=== PATIENT | male | born 1945 | race Caucasian/White ===

== ENCOUNTER 2022-08-09 14:53 | Observation (INO) | payer BC, SELFPAY ==
[2022-08-09] VITALS (30 sets, daily range): BP systolic 127–163; BP diastolic 62–78; PULSE 59–78; RESP 11–22; TEMP 36.8–36.9; O2SAT 92–100
--- NOTE | 2022-08-09 15:00 | RT.EKG_ITS ---
APPROVED REPORT Exam: Resting ECG Reason for Exam: syncopal episode Patient Location: E HR:71 bpm ECG Measurements Heart Rate 71 AXIS UT 170 P -2 QRSd 90 QRS 55 QT 397 T 53 QTc 431 Conclusion Sinus rhythm...normal P axis, V-rate 60- 99
[2022-08-09 15:29] LABS: Abs Immature Grans 0.02 10^3/uL (0.0-0.06); Absolute Basophil Count 0.07 10^3/uL (0.0-0.2); Absolute Eosinophil Count 0.32 10^3/uL (0.0-0.7); Absolute Monocyte Count 0.81 10^3/uL (0.1-0.8); Absolute Neutrophil Count 6.27 10^3/uL (1.2-6.7); Basophils % 0.8; Eosinophils % 3.6; HCT 44.3 % (40.0-50.0); HGB 14.7 g/dL (13.5-17.5); Immature Grans % 0.2; Lymphocytes % 14.8; MCH 31.2 pg (27.0-33.0); MCHC 33.2 % (32.0-36.0); MCV 94 fL (80-95); MPV 10.1 fL (8.0-11.0); Monocytes % 9.2; Neutrophils % 71.4; Platelet Count 176 10^3/uL (130-400); RBC 4.71 10^6/uL (4.36-5.78); RDW 12.6 % (11.8-14.1); RDW-SD 43.3 fL; WBC 8.79 10^3/uL (4.4-10.8)
--- NOTE | 2022-08-09 15:30 | DI.CT_ITS ---
Exam(s) CT HEAD WO EXAM: CT HEAD WO CLINICAL HISTORY: Fall, syncope, R face injury. TECHNIQUE: Imaging Protocol: Axial computed tomography images with coronal and sagittal reformatted images were created and reviewed COMPARISON: No exams were available for comparison FINDINGS: Ventricles and Extra axial spaces: Normal in size and morphology for the patient's age. Hemorrhage: None. Cerebral parenchyma: Normal. Midline shift: None. Brainstem/Cerebellum: Normal. Calvarium: Normal. Visualized Paranasal sinuses/Mastoids: Clear. Soft Tissues: Unremarkable. IMPRESSION: No acute intracranial process. Findings called to Dr. Sloan, emergency department provider. RADIATION DOSE DELIVERED: 815.72mGy.cm Total DLP DATA REPOSITORY: All CT scans at this facility are submitted to the National Radiology Data Registry (NRDR) Dose Index Registry (DIR) with the [employer] (ACR). RADIATION OPTIMIZATION: All CT scans at this facility use at least one of these dose optimization te chniques: automated exposure control; mA and/or kV adjustment per patient size (includes targeted exa ms where dose is matched to clinical indication); or iterative reconstruction.
--- NOTE | 2022-08-09 15:36 | W.ED.GENAD ---
Discharge Plan Disposition Patient Disposition: Home Condition: Improving Discharge Details Chief Complaint: [id number] Clinical Impression: Syncope Primary Care Provider: Bridget,Local ED Provider: Francisco Sloan Home Meds and New Rx's Prescriptions: No Action atorvastatin 40 mg Tablet 40 mg PO DAILY sildenafil 25 mg Tablet 20 mg PO PRN PRN aspirin 81 mg Tablet 81 mg PO DAILY metoprolol succinate 25 mg Tablet Extended Release 24 Hr 25 mg PO DAILY albuterol 90 mcg/actuation Aerosol 1 mcg INHALATION PRN PRN epinephrine 0.3 mg/0.3 mL Auto-Injector 0.3 ml IM PRN PRN fluticasone propion-salmeterol [Advair Diskus] 100-50 mcg/dose Blister With Device 1 inh INHALATION DAILY multivitamin Capsule 1 cap PO DAILY omeprazole 20 mg Tablet,Disintegrat, Delay Rel See Rx Instructions .ROUTE .COMPLEX Rx Instructions: 20 mg orally every other day Medical Decision Making 77-year-old male presents with his . He lives in [facility] and is here caring for a family member. They drove through a snowstorm for 7 hours prior to arriving this weekend. Last night while making dinner the patient placed something on the counter, abruptly fell to the ground and was noted to have a question of syncope for a few seconds. There was no tongue biting, no shaking, no incontinence. He denies chest pain or palpitations. Has slight headache today. Discussed with his home doctor who referred him to the emergency department. Patient states he has no complaints today. Broad differential diagnosis considered including cardiogenic syncope, vagal mediated syncope, given the recent long distance drive must exclude PE. The patient had IV access established, screening labs, EKG obtained and he is referred for CT imaging of the head, chest x-ray, laboratories. The patient has a white blood cell count of 8, hematocrit 44, platelets 176. D-dimer is negative adjusted for age at 560. Sodium 136, potassium 3.9, chloride 102, bicarb 28, BUN 17, creatinine 1.0. Troponin is negative. CT scan of the head without acute intracranial findings. Please see the formal report. Chest x-ray unremarkable. Patient's work-up today is reassuring. He does have history of ischemic coronary artery disease, age 77 and unprovoked syncope. I feel he is best served by a period of observation and will discuss admission with the hospitalist team. HPI General Mode of arrival: ambulatory. Date/Time Provider Initiated Documentation: 08/09/22 15:08. Limitations to Documentation: no limitations. Information obtained by: patient and family. History of Present Illness 77 year old M presents to the emergency department with the chief complaint of Syncope last night while standing, described as moderate, and is localized to the head. Patient started experiencing this minute(s) and it has been now resolved. No relieving factors improve symptom(s), No exacerbating factors reported . Patient notes syncope; denies chest pain, diaphoresis, fever/chills, nausea/vomiting and weakness. Patient did receive the following treatments prior to arrival, none Related Data Home Medications Medication Instructions Recorded Confirmed albuterol 90 mcg/actuation aerosol 1 mcg inhalation PRN PRN 08/09/22 08/09/22 inhaler aspirin 81 mg tablet 81 mg PO DAILY 08/09/22 08/09/22 atorvastatin 40 mg tablet 40 mg PO DAILY 08/09/22 08/09/22 epinephrine 0.3 mg/0.3 mL 0.3 ml IM PRN PRN 08/09/22 08/09/22 injection, auto-injector fluticasone 100 mcg-salmeterol 50 1 inh inhalation DAILY 08/09/22 08/09/22 mcg/dose blistr powdr for inhalation (Advair Diskus) metoprolol succinate 25 mg 25 mg PO DAILY 08/09/22 08/09/22 tablet,extended release 24 hr multivitamin 1 cap PO DAILY 08/09/22 08/09/22 omeprazole 20 mg delayed See Rx Instructions .Route .COMPLEX 08/09/22 08/09/22 release,disintegrating tablet sildenafil 25 mg tablet 20 mg PO PRN PRN 08/09/22 08/09/22 Allergies Allergy/AdvReac Type Severity Reaction Status Date / Time bee venom protein (honey bee) Allergy Severe Unverified 08/09/22 15:09 animal dander Allergy Mild Unverified 08/09/22 15:09 General Stated Complaint: [id number] SONY: 3 Review of Systems Narrative: Tetanus last updated 2010. 7 systems reviewed and otherwise negative. PFSH All Active Problems (Updated 08/09/22 @ 17:27 by Francisco Sloan MD) Syncope (Chronic) Social History Smoking/Tobacco Use Status: Former Tobacco Use Smoking risk assessment performed?: Yes Alcohol Intake: current Alcohol Intake frequency: 0-2 drinks per day Alcohol type: wine Drug use: Never Substance use type: does not use Do you feel safe at home: Yes Do you feel safe in your relationship?: Yes Exam Narrative Exam Narrative: GEN: awake, alert, oriented 3. Pleasant, well groomed, interactive. HEAD: Normocephalic, right face ecchymosis around the orbit. There is no bony instability or facial anesthesia. The right lateral superior orbit has a subtle abrasion present. ENT: Mucous membranes moist, oropharynx unremarkable, External ear exam unremarkable EYES: PERRL, EOMI NECK: Full ROM, no CORNELIO, no menigismus CHEST/RESP: Nontender, clear to auscultation bilateral, no wheeze/rhonchi/rales CARDIOVASCULAR: RRR, no murmur, rub alysha. 2+ Rad pulse bilateral ABDOMEN: Soft, nontender, no mass. +Bowel sounds EXT: Full ROM, no edema, no rash Neuro: Grossly normal neurologic exam, conversant, interactive. Psych: Speech fluent, thoughts congruent, affect normal Course Vital Signs Vital signs: Vital Signs Temperature 36.9 C 08/09/22 15:03 Pulse 76 08/09/22 15:03 Respiratory Rate 15 08/09/22 15:03 Pulse Oximetry 99 08/09/22 15:03 Temperature 36.9 C 08/09/22 15:03 Temperature Source Oral 08/09/22 15:03 Pulse 76 08/09/22 15:15 Pulse 72 08/09/22 15:20 Respiratory Rate 15 08/09/22 15:20 Blood Pressure 163/74 H 08/09/22 15:15 Blood Pressure Mean 97 08/09/22 15:15 Pulse Oximetry 100 08/09/22 15:20 Oxygen Delivery Method Room Air 08/09/22 15:03 Oxygen Flow Rate 0 08/09/22 15:03 Pain Level 0 08/09/22 15:03 Lab/Test Results Lab/Test Results: Laboratory Tests Range/Units 08/09/22 15:20 WBC (4.4-10.8) 10^3/uL 8.79 RBC (4.36-5.78) 10^6/uL 4.71 Hgb (13.5-17.5) g/dL 14.7 Hct (40.0-50.0) % 44.3 MCV (80-95) fL 94 MCH (27.0-33.0) pg 31.2 MCHC (32.0-36.0) % 33.2 RDW (11.8-14.1) % 12.6 Plt Count (130-400) 10^3/uL 176 MPV (8.0-11.0) fL 10.1 Immature Gran % 0.2 Neutrophils % 71.4 Lymphocytes % 14.8 Monocytes % 9.2 Eosinophils % 3.6 Basophils % 0.8 Nucleated RBC % (0.0-0.3) % 0.0 Absolute Neutrophils (1.2-6.7) 10^3/uL 6.27 Absolute Lymphocytes (1.2-3.4) 10^3/uL 1.30 Absolute Monocytes (0.1-0.8) 10^3/uL 0.81 H Absolute Eosinophils (0.0-0.7) 10^3/uL 0.32 Absolute Basophils (0.0-0.2) 10^3/uL 0.07
[2022-08-09 15:46] LABS: ALT 31 U/L (16-63); AST 23 U/L (15-37); Albumin 3.8 g/dL (3.4-5.0); Alkaline Phosphatase 98 U/L (46-116); Anion Gap 5.8 mmol/L (3-11); BUN 17 mg/dL (7-18); Bilirubin, Total 0.7 mg/dL (0.2-1.0); CO2 28.2 mmol/L (21.0-32.0); Calcium 8.9 mg/dL (8.5-10.1); Chloride 102 mmol/L (98-107); Estimated GFR 76.56 (mL/min/1.73m2); Glucose 95 mg/dL (74-106); Potassium 3.9 mmol/L (3.5-5.1); Sodium 136 mmol/L (136-145); Troponin I < 50 ng/L (<or=60)
--- NOTE | 2022-08-09 16:15 | DI.RAD_ITS ---
Exam(s) XR CHEST 2V PA LATERAL EXAM: XR CHEST 2V PA LATERAL CLINICAL HISTORY: SYncope TECHNIQUE: 2D digital imaging was performed. COMPARISON: No exams were available for comparison FINDINGS: HEART: Normal size. Status post CABG. Aorta: Not dilated. PULMONARY VASCULATURE: Normal. LUNGS: Clear. PLEURAL SPACE: No pleural effusion or pneumothorax. BONE:Unremarkable for age. Sternal wires. IMPRESSION: No acute abnormality. DATA REPOSITORY: RADIATION DOSE DELIVERED:
[2022-08-09 16:28] LABS: D-Dimer 560 ng/mlFEU (<500)
[2022-08-09 18:04] LABS: Source Nasal/Nares
[2022-08-09 18:16] LABS: Bilirubin Negative (Negative); Blood Negative (Negative); Clarity Clear (Clear); Glucose Negative (Negative); Ketones Negative (Negative); Leukocyte Esterase Negative (Negative); Nitrite Negative (Negative); Urobilinogen 0.2 mg/dL (Up to 0.2)
--- NOTE | 2022-08-09 18:21 | W.PM.HP.N ---
Date of service: 08/09/22 Time of Service: 18:21 Assessment and Plan Assessment and plan (1) Syncope: Status: Acute Assessment and plan: No evidence of ACS. I do agree that this sounds like it could have been a cardiogenic event. I am also curious if he does not have transient SVT in response to advair. Monitor on tele. Obtain echo in am. Not orthostatic. (2) CAD (coronary artery disease): Status: Chronic Assessment and plan: Continue home medications (3) HTN (hypertension), benign: Status: Chronic Assessment and plan: Continue home metoprolol (4) Hyperlipidemia: Status: Chronic Assessment and plan: Continue atorvastatin. Check fasting lipid panel. (5) Closed head injury: Status: Acute Assessment and plan: Avoid chemical DVT ppx. Monitor for change in neurologic status. (6) DVT prophylaxis: Status: Acute Assessment and plan: SDCs Avoid chemical DVT ppx in setting of head trauma (7) Discharge planning issues: Status: Acute Assessment and plan: full code. Place in observation status. Anticipate discharge tomorrow with a cardiac event recorder (if that's a possibility given that he will be traveling back to [place], [place], next week). History of Present Illness History of Present Illness Chief Complaint: Syncope Narrative: Mr Mejía is a 77 year old male with PMHx of two prior syncopal episodes, CAD s/p CABG/stent, as well as h/o HTH, hyperlipidemia, non-oxygen dependent COPD, GERD, who presented to [facility] ED today at the recommendation of his PCP in [place], [place] (where he resides) after having a syncopal event at home while working on preparing dinner and placing a dish of lasagna on the counter. He did not have any prodromal symptoms (which is different from his prior syncopal episodes when he would wake up in the middle of the night nauseated and faint when he would get up from the bed). He thinks he was unconscious for about a minute and was not accompanied by convulsive activity. He fell forward and onto his right side. He did hit his head and has an ecchymosis over his right eye. When he came to it, the only abnormal thing he felt was very mild nausea. He did enjoy his usual cocktail yesterday evening prior to the event. He does note that sometimes taking advair makes him feel flushed. The patient has had quite a bit of stress in the preceding days, including shoveling snow two days aog, driving 7 hours through the snow storm, and taking care of his [id number]. He admits he did not do much hydration during this time, but he has been eating. He specifically denies dizziness, headache, palpitations, chest pain, shortness of breath, nausea now. He is not orthostatic in the ER, and his workup so far, including EKG, troponin, CT head has been negative. Observation on the hospitalist service has been requested. His PCP is Dr Justino Tolliver in [place], [place]. Review of Systems All systems reviewed & are unremarkable except as noted in HPI and below PFSH All Active Problems (Updated 08/09/22 @ 19:42 by Latoya Cleveland MD) COPD (chronic obstructive pulmonary disease) (Chronic) Discharge planning issues (Acute) DVT prophylaxis (Acute) Closed head injury (Acute) GERD (gastroesophageal reflux disease) (Chronic) Hyperlipidemia (Chronic) HTN (hypertension), benign (Chronic) CAD (coronary artery disease) (Chronic) Syncope (Acute) Medical History (Updated 08/09/22 @ 19:42 by Laotya Cleveland MD) Syncopal episodes Surgical History (Updated 08/09/22 @ 19:48 by Latoya Cleveland MD) H/O parathyroidectomy History of coronary artery stent placement Hx of CABG Family History (Updated 08/09/22 @ 19:41 by Latoya Cleveland MD) Father Heart disease Hypertension Mother Stroke Social History Smoking/Tobacco Use Status: Former Tobacco Use Smoking risk assessment performed?: Yes Alcohol Intake: current Alcohol Intake frequency: 0-2 drinks per day Alcohol type: wine Drug use: Never Substance use type: does not use Do you feel safe at home: Yes Do you feel safe in your relationship?: Yes Meds Allergies and Home Medications Allergies Allergy/AdvReac Type Severity Reaction Status Date / Time bee venom protein (honey bee) Allergy Severe Unverified 08/09/22 15:09 animal dander Allergy Mild Unverified 08/09/22 15:09 Home Medications Medication Instructions Recorded Confirmed Type albuterol 90 mcg/actuation aerosol 1 mcg inhalation PRN PRN 08/09/22 08/09/22 History inhaler aspirin 81 mg tablet 81 mg PO DAILY 08/09/22 08/09/22 History atorvastatin 40 mg tablet 40 mg PO DAILY 08/09/22 08/09/22 History epinephrine 0.3 mg/0.3 mL 0.3 ml IM PRN PRN 08/09/22 08/09/22 History injection, auto-injector fluticasone 100 mcg-salmeterol 50 1 inh inhalation DAILY 08/09/22 08/09/22 History mcg/dose blistr powdr for inhalation (Advair Diskus) metoprolol succinate 25 mg 25 mg PO DAILY 08/09/22 08/09/22 History tablet,extended release 24 hr multivitamin 1 cap PO DAILY 08/09/22 08/09/22 History omeprazole 20 mg delayed See Rx Instructions .Route .COMPLEX 08/09/22 08/09/22 History release,disintegrating tablet sildenafil 25 mg tablet 20 mg PO PRN PRN 08/09/22 08/09/22 History Exam Narrative Exam Narrative: General: Very pleasant male who looks younger than his stated age, A&Ox3, sitting up comfortably in bed Neurological: A&Ox3, no focal deficits Psychiatric: Appropriate speech pattern/content Skin: Ecchymosis over R eye, otherwise no visible bruises/rashes HEENT: Ecchymosis R eye, normocephalic, EOMI, MMM, clear oropharynx, no submandibular or cervical lymphadenopathy, no goiter or JVD Cardiovascular: RRR, a very quiet MEMO Lungs: CTAB Gastrointestinal: soft, nontender, nondistended Genitourinary: deferred Extremities: No edema BLEs, trace pedal pulses B, no c/c. Results Imaging Additional studies: CT head: No acute intracranial process. CXR: No acute abnormality.? EKG: NSR, HR 71, no acute ischemia Labs 08/09/22 15:20 08/09/22 15:20 Labs: Laboratory Results - last 24 hr 08/09/22 08/09/22 08/09/22 15:20 15:20 15:20 WBC 8.79 RBC 4.71 Hgb 14.7 Hct 44.3 MCV 94 MCH 31.2 MCHC 33.2 RDW 12.6 Plt Count 176 MPV 10.1 Immature Gran % 0.2 Neutrophils % 71.4 Lymphocytes % 14.8 Monocytes % 9.2 Eosinophils % 3.6 Basophils % 0.8 Nucleated RBC % 0.0 Absolute Neutrophils 6.27 Absolute Lymphocytes 1.30 Absolute Monocytes 0.81 H Absolute Eosinophils 0.32 Absolute Basophils 0.07 D-Dimer 560 H Sodium 136 Potassium 3.9 Chloride 102 Carbon Dioxide 28.2 Anion Gap 5.8 BUN 17 Creatinine 1.0 Est GFR (CKD-EPI 2020) 76.56 Glucose 95 Calcium 8.9 Magnesium 2.0 Total Bilirubin 0.7 AST 23 ALT 31 Alkaline Phosphatase 98 Troponin I < 50 Total Protein 7.0 Albumin 3.8 Urine Color Urine Clarity Urine pH Ur Specific [place] Urine Protein Urine Ketones Urine Blood Urine Nitrite Urine Bilirubin Urine Urobilinogen Ur Leukocyte Esterase Urine Glucose COVID-19 Source 08/09/22 08/09/22 17:46 17:46 WBC RBC Hgb Hct MCV MCH MCHC RDW Plt Count MPV Immature Gran % Neutrophils % Lymphocytes % Monocytes % Eosinophils % Basophils % Nucleated RBC % Absolute Neutrophils Absolute Lymphocytes Absolute Monocytes Absolute Eosinophils Absolute Basophils D-Dimer Sodium Potassium Chloride Carbon Dioxide Anion Gap BUN Creatinine Est GFR (CKD-EPI 2020) Glucose Calcium Magnesium Total Bilirubin AST ALT Alkaline Phosphatase Troponin I Total Protein Albumin Urine Color Yellow Urine Clarity Clear Urine pH 7.0 Ur Specific [place] 1.010 Urine Protein Negative Urine Ketones Negative Urine Blood Negative Urine Nitrite Negative Urine Bilirubin Negative Urine Urobilinogen 0.2 Ur Leukocyte Esterase Negative Urine Glucose Negative COVID-19 Source Nasal/Nares Last Vital Signs Temp 36.9 C 08/09/22 15:03 Pulse 67 08/09/22 17:45 Resp 13 08/09/22 18:01 BP 131/67 08/09/22 17:45 Pulse Ox 94 08/09/22 18:01 PAWSS Have you Been Recently Intoxicated or Drunk Within the Last 30 days?: No Have you Ever Experienced Previous Episodes of Alcohol Withdrawal?: No Have you ever Experienced Withdrawal Seizures?: No Have you ever Experienced Delirium Tremens(DT)s?: No Have you ever undergone Alcohol Rehabilitation Treatment (i.e, inpt ot outpatient treatment programs)?: No Have you ever Experienced Blackouts?: No Have you ever Combined Alcohol with other Downers within the last 90 days?: No Have you ever Combined Alcohol with any other Substance of Abuse during the last 90 days?: No Positive Blood Alcohol level on Presentation? [PCS.BAL]: No Evidence of Increased Autonomic Activity (i.e. HR>120, tremor, sweating, agitation, nausea)?: No Result: 0 Time Spent Time spent with Patient: 55-74 minutes Time was spent: preparing to see the patient(eg.review tests), obtaining and/or reviewing separately otained hiistory, ordering medications,tests, procedures, referring, communicating with other health palliative care coordinator, indepentently interpreting results, counseling the patient and care coordination
[2022-08-09 18:34] LABS: COVID-19 PCR Negative (Negative)
--- NOTE | 2022-08-09 18:55 | NUR.NOTE ---
Nursing Note: settled pt in to his new room. food warmed up, water provided. phone chargers provided. pt is aox4. no acute distress noted. call johnson within reach. bed in lowest position
[2022-08-09 19:08] LABS: Troponin I < 50 ng/L (<or=60)
[2022-08-10] VITALS (7 sets, daily range): BP systolic 108–135; BP diastolic 50–86; PULSE 63–75; RESP 16–18; TEMP 36.4–37.1; O2SAT 95–100
[2022-08-10 07:40] LABS: Anion Gap 6.3 mmol/L (3-11); BUN 14 mg/dL (7-18); CO2 27.7 mmol/L (21.0-32.0); CREATININE 0.8 mg/dL (0.70-1.30); Calcium 8.8 mg/dL (8.5-10.1); Calculated LDL 56 mg/dL (<100); Chloride 107 mmol/L (98-107); Cholesterol 128 mg/dL (<200); Estimated GFR 90.02 (mL/min/1.73m2); Glucose 96 mg/dL (74-106); HDL Cholesterol 57 mg/dL (40-60); Magnesium 1.9 mg/dL (1.8-2.4); Potassium 4.1 mmol/L (3.5-5.1); Sodium 141 mmol/L (136-145); TSH (W/Ref FT4) 3.25 uIU/mL (0.36-3.74); Triglyceride 77 mg/dL (<150)
--- NOTE | 2022-08-10 07:45 | RT.EKG_ITS ---
APPROVED REPORT Exam: Resting ECG Reason for Exam: F/u syncope, long pause overnight Patient Location: I HR:65 bpm ECG Measurements Heart Rate 65 AXIS UT 167 P -14 QRSd 96 QRS 49 QT 435 T 47 QTc 453 Conclusion Sinus rhythm...normal P axis, V-rate 50- 99 Normal Electrocardiogram
[2022-08-10] MEDS: Omeprazole 20 MG CAPCR PO (08:04)
[2022-08-10] MEDS: Aspirin 81 MG CHEW PO (08:04)
[2022-08-10] MEDS: Multivitamin w/Minerals TAB 1 TAB PO (08:04)
[2022-08-10 08:06] LABS: Lab Add On Test DONE
--- NOTE | 2022-08-10 11:05 | INITIAL_ITS ---
- If Service Date Differs Date of service: 08/10/22 Time of Service: 11:05 Care Management Initial Assess REASON FOR HOSPITALIZATION:: Syncope PAST MEDICAL HISTORY/PAST SURGICAL HISTORY:: All Active Problems. COPD (chronic obstructive pulmonary disease) (Chronic). Discharge planning issues (Acute). DVT prophylaxis (Acute). Closed head injury (Acute). GERD (gastroesophageal reflux disease) (Chronic). Hyperlipidemia (Chronic). HTN (hypertension), be nign (Chronic). CAD (coronary artery disease) (Chronic). Syncope (Acute). Medical History. Syncopal episodes. Surgical History. H/O parathyroidectomy. History of coronary artery stent placement. Hx of CABG PREVIOUS FUNCTIONAL STATUS/SOCIAL/FAMILY SUPPORTS:: Abdirahman lives in [place], [place] with his , Kat. He is independent at baseline. CURRENT FUNCTIONAL STATUS:: Phil was sitting up in his chair when CM met with him. He stated that he has had several tests since arriving, and is expecting to have an echo later today. He stated that he is feeling better than yesterday. He reported that he is in [place] helping care for his 's parents, and he is normally very active, so sitting in a hospital room is difficult for him. CM posadas ggested that he walk around the halls to fit in some activity. Per report, he may require a heart monitor upon discharge. RT will communicate with his PCP, which is not local. CM will continue to follow. ADVANCE DIRECTIVES:: Not on file. Has patient been provided with info about the portal/API?: Yes Did the patient sign up for the portal?: No CODE STATUS:: Full Code INSURANCE COVERAGE / FINANCIAL ISSUES:: AYALA Cedeno MCR replacement, MCR CURRENT HOME/COMMUNITY SERVICES/EQUIPMENT:: None. PRIMARY CARE PHYSICIAN:: Not local. POTENTIAL DISCHARGE NEEDS:: Evaluations for further needs, possible heart monitor, follow up appointments. PATIENT/FAMILY EDUCATION NEEDS:: Review discharge instructions and limitations, discussion of self care needs including ask me three. ANTICIPATED BARRIERS TO DISCHARGE:: None identified. TRANSPORTATION:: Via private vehicle by family. PLAN:: Anticipate Phil will return home when medically cleared. His will drive him home via private vehicle. He will follow up with his PCP and discharge plan of care. CM will continue to follow.
--- NOTE | 2022-08-10 15:25 | PGE_ITS ---
Date of Service Date of service: 08/10/22 Time of Service: 09:30 Assessment and Plan Assessment and plan (1) Sinus pause: Status: Acute Assessment and plan: In setting of syncope and beta blockade. The patient does also describe a tick bite 2 years ago that did not get treated. There was no rash and it does not sound like the tick had been attached for a long time. D/c metoprolol. Check tick panel. Continue to monitor for recurrences of pauses. If they do not recur, would discharge home in 48 hrs with a cardiac event recorder. If they do recur, would need transfer to a tertiary care facility for a pacemaker. I spoke with the patient's potato chip packaging machine operator (Dr Baker) who is now aware of the situation and agrees with the plan. We are notifying the PCP's office as well. (2) Syncope: Status: Acute Assessment and plan: In setting of above, I suspect that syncope is cardiogenic. May require pacemaker placement if pauses recur. Echo is not available today. (3) CAD (coronary artery disease): Status: Chronic Assessment and plan: Discontinue metoprolol. (4) HTN (hypertension), benign: Status: Chronic Assessment and plan: Discontinue metoprolol (5) Hyperlipidemia: Status: Chronic Assessment and plan: Continue atorvastatin. Lipids at goal. (6) Closed head injury: Status: Acute Assessment and plan: Avoid chemical DVT ppx. Monitor for change in neurologic status. (7) DVT prophylaxis: Status: Acute Assessment and plan: SDCs Avoid chemical DVT ppx in setting of head trauma (8) Discharge planning issues: Status: Acute Assessment and plan: full code. Admit to inpatient status. PCP: Justino Tolliver in [place], [place]. Dry Kiln Worker: Dr Baker in [place], [place]. May require pacemaker placement on this admission. Subjective Subjective Interval history since last seen: Mr Mejía had a 4.73 sec pause yesterday evening while eating pudding. He was symptomatic. This morning he is feeling fine. He denies dizziness, chest pain, shortness of breath, nausea. Exam Narrative Exam Narrative: General: Very pleasant male who looks younger than his stated age, A&Ox3, sitting in a chair HEENT: Ecchymosis R eye, EOMI, MMM Cardiovascular: RRR, a very quiet MEMO Lungs: CTAB Gastrointestinal: soft, nontender, nondistended Extremities: No edema BLEs, trace pedal pulses B, no c/c. Objective Last Vital Signs Temp 36.4 C L 08/10/22 12:17 Pulse 66 08/10/22 12:17 Resp 16 08/10/22 12:17 BP 133/86 08/10/22 12:17 Pulse Ox 99 08/10/22 12:17 Laboratory Results - last 24 hr 08/09/22 08/09/22 08/09/22 15:20 15:20 15:20 WBC 8.79 RBC 4.71 Hgb 14.7 Hct 44.3 MCV 94 MCH 31.2 MCHC 33.2 RDW 12.6 Plt Count 176 MPV 10.1 Immature Gran % 0.2 Neutrophils % 71.4 Lymphocytes % 14.8 Monocytes % 9.2 Eosinophils % 3.6 Basophils % 0.8 Nucleated RBC % 0.0 Absolute Neutrophils 6.27 Absolute Lymphocytes 1.30 Absolute Monocytes 0.81 H Absolute Eosinophils 0.32 Absolute Basophils 0.07 D-Dimer 560 H Sodium 136 Potassium 3.9 Chloride 102 Carbon Dioxide 28.2 Anion Gap 5.8 BUN 17 Creatinine 1.0 Est GFR (CKD-EPI 2020) 76.56 Glucose 95 Calcium 8.9 Magnesium 2.0 Total Bilirubin 0.7 AST 23 ALT 31 Alkaline Phosphatase 98 Troponin I < 50 Total Protein 7.0 Albumin 3.8 Triglycerides Total Cholesterol LDL Cholesterol, Calc HDL Cholesterol TSH Urine Color Urine Clarity Urine pH Ur Specific [place] Urine Protein Urine Ketones Urine Blood Urine Nitrite Urine Bilirubin Urine Urobilinogen Ur Leukocyte Esterase Urine Glucose COVID-19 Source SARS-CoV-2 (PCR) Add-On Test Request 08/09/22 08/09/22 08/09/22 17:46 17:46 18:32 WBC RBC Hgb Hct MCV MCH MCHC RDW Plt Count MPV Immature Gran % Neutrophils % Lymphocytes % Monocytes % Eosinophils % Basophils % Nucleated RBC % Absolute Neutrophils Absolute Lymphocytes Absolute Monocytes Absolute Eosinophils Absolute Basophils D-Dimer Sodium Potassium Chloride Carbon Dioxide Anion Gap BUN Creatinine Est GFR (CKD-EPI 2020) Glucose Calcium Magnesium Total Bilirubin AST ALT Alkaline Phosphatase Troponin I < 50 Total Protein Albumin Triglycerides Total Cholesterol LDL Cholesterol, Calc HDL Cholesterol TSH Urine Color Yellow Urine Clarity Clear Urine pH 7.0 Ur Specific [place] 1.010 Urine Protein Negative Urine Ketones Negative Urine Blood Negative Urine Nitrite Negative Urine Bilirubin Negative Urine Urobilinogen 0.2 Ur Leukocyte Esterase Negative Urine Glucose Negative COVID-19 Source Nasal/Nares SARS-CoV-2 (PCR) Negative Add-On Test Request 08/10/22 08/10/22 06:28 08:05 WBC RBC Hgb Hct MCV MCH MCHC RDW Plt Count MPV Immature Gran % Neutrophils % Lymphocytes % Monocytes % Eosinophils % Basophils % Nucleated RBC % Absolute Neutrophils Absolute Lymphocytes Absolute Monocytes Absolute Eosinophils Absolute Basophils D-Dimer Sodium 141 Potassium 4.1 Chloride 107 Carbon Dioxide 27.7 Anion Gap 6.3 BUN 14 Creatinine 0.8 Est GFR (CKD-EPI 2020) 90.02 Glucose 96 Calcium 8.8 Magnesium 1.9 Total Bilirubin AST ALT Alkaline Phosphatase Troponin I Total Protein Albumin Triglycerides 77 Total Cholesterol 128 LDL Cholesterol, Calc 56 HDL Cholesterol 57 TSH 3.25 Urine Color Urine Clarity Urine pH Ur Specific [place] Urine Protein Urine Ketones Urine Blood Urine Nitrite Urine Bilirubin Urine Urobilinogen Ur Leukocyte Esterase Urine Glucose COVID-19 Source SARS-CoV-2 (PCR) Add-On Test Request DONE Objective Narrative Objective Narrative: No echo is availbale today EKG: HR 65, NSR, no acute ischemia, no evidence of AV block PAWSS Have you Been Recently Intoxicated or Drunk Within the Last 30 days?: No Have you Ever Experienced Previous Episodes of Alcohol Withdrawal?: No Have you ever Experienced Withdrawal Seizures?: No Have you ever Experienced Delirium Tremens(DT)s?: No Have you ever undergone Alcohol Rehabilitation Treatment (i.e, inpt ot outpatient treatment programs)?: No Have you ever Experienced Blackouts?: No Have you ever Combined Alcohol with other Downers within the last 90 days?: No Have you ever Combined Alcohol with any other Substance of Abuse during the last 90 days?: No Positive Blood Alcohol level on Presentation? [PCS.BAL]: No Evidence of Increased Autonomic Activity (i.e. HR>120, tremor, sweating, agitation, nausea)?: No Result: 0 Time Spent with Patient Time Spent with Patient: 35-49 minutes Time was spent: preparing to see the patient(eg.review tests), obtaining and/or reviewing separately otained hiistory, ordering medications,tests, procedures, referring, communicating with other health healthcare network consultant, indepentently interpreting results, counseling the patient and care coordination
--- NOTE | 2022-08-10 17:35 | W.PM.DS.N ---
Date of service: 08/10/22 Time of Service: 17:36 DS: Diagnosis Discharge Diagnosis (1) Sinus pause: Status: Acute (2) Syncope: Status: Acute (3) CAD (coronary artery disease): Status: Chronic (4) HTN (hypertension), benign: Status: Chronic (5) Hyperlipidemia: Status: Chronic (6) Closed head injury: Status: Acute Discharge Plan Disposition Patient Disposition: Transfer-Acute Inpatient Care Specific Acute Inpt Facility: [facility] Condition: Stable Discharge Details Reason For Visit: Syncope Admit Date/Time: 08/10/22 16:15 Admit Provider: Latoya Cleveland Attending Provider: Latoya Cleveland Primary Care Provider: [facility] Hospital Course: Mr Mejía is a 77 year old male with PMHx of two prior syncopal episodes, CAD s/p CABGx 4/stent, as well as h/o HTN on metoprolol, hyperlipidemia, non-oxygen dependent COPD, GERD, who was admitted to [facility] hospitalist service on 08/09/22 after a syncopal episode the day before, on 08/08/22, without prodromal symptoms. His ischemic workup, including troponins x 2 and EKGs was negative. His telemetry did reveal a pause of 4.73 seconds while awake and symptomatic (dizzy). His metoprolol was discontinued (last dose was on 08/09/22 in am). The patient describes a tick bite two years ago without a rash that did not get treated, but it does not appear that the tick was attached for a prolonged period of time. There has only been one pause since, and this just happened. This pause was 3.01 sec. There is no echocardiogram today or until 08/13/22. We do not have pacemaker placement possibility at our facility. I discussed the case with the patient's high school math teacher, Dr Baker, who stated that the patient does not have a history of arrhythmias. He did feel the patient would likely end up needing a pacemaker. The patient was interested in pursuing a transfer [place] [facility] [place] to get the echocardiogram and en evaluation for a pacemaker placement. He was accepted in transfer to [facility] [place] under the care of Dr Daniel. He is stable for transfer and agrees to transfer. Care for patient as well as completion of his transfer summary on day of transfer took 60 minutes. Please, note, that the list of medications below reflects outpatient prescriptions. Please, look at MAR for list of this patient's inpatient medications. Home Meds and New Rx's Prescriptions: No Action atorvastatin 40 mg Tablet 40 mg PO DAILY sildenafil 25 mg Tablet 20 mg PO PRN PRN aspirin 81 mg Tablet 81 mg PO DAILY metoprolol succinate 25 mg Tablet Extended Release 24 Hr 25 mg PO DAILY albuterol 90 mcg/actuation Aerosol 1 mcg INHALATION PRN PRN epinephrine 0.3 mg/0.3 mL Auto-Injector 0.3 ml IM PRN PRN fluticasone propion-salmeterol [Advair Diskus] 100-50 mcg/dose Blister With Device 1 inh INHALATION DAILY multivitamin Capsule 1 cap PO DAILY omeprazole 20 mg Tablet,Disintegrat, Delay Rel See Rx Instructions .ROUTE .COMPLEX Rx Instructions: 20 mg orally every other day Discharge Instructions Activity:: Activity as Tolerated Equipment/Supplies:: No Equipment Needed Diet:: As Tolerated Discharge Orders Discharge Orders: Discharge Order (Routine); Ordered 08/10/22 Ordered By: Latoya Cleveland DS: Summary Time Spent with Patient providing and/or coordinating discharge services: Greater than 30 minutes Status at Discharge Functional status at discharge: independent ambulation Overall status at discharge: patient is not back to baseline Mental Status: mental status grossly normal Speech and Movement: speech and movement normal Mood: congruent mood Affect: normal affect Exam Narrative Exam Narrative: General: Very pleasant male who looks younger than his stated age, A&Ox3, sitting in a chair HEENT: Ecchymosis R eye, EOMI, MMM Cardiovascular: RRR, a very quiet MEMO Lungs: CTAB Gastrointestinal: soft, nontender, nondistended Extremities: No edema BLEs, trace pedal pulses B, no c/c. Psych Mental Status: mental status grossly normal Speech and Movement: speech and movement normal Mood: congruent mood Affect: normal affect DS: Data Vitals/I&O Vitals and I&O: Vital Signs Temperature 36.7 C 08/10/22 15:44 Temperature Source Tympanic 08/10/22 15:44 Pulse 74 08/10/22 15:44 Pulse Rhythm Regular 08/10/22 07:14 Pulse 72 08/09/22 18:01 Respiratory Rate 16 08/10/22 15:44 Respiratory Effort Normal, Non-Labored 08/10/22 07:14 Respiratory Depth Normal 08/10/22 07:14 Respiratory Pattern Normal 08/10/22 07:14 Blood Pressure 135/78 08/10/22 15:44 Blood Pressure Mean 83 08/09/22 17:45 Pulse Oximetry 99 08/10/22 15:44 Oxygen Delivery Method Room Air 08/10/22 15:44 Oxygen Flow Rate 0 08/10/22 15:44 Pain Level 0 08/10/22 07:14 Intake & Output 08/09/22 08/10/22 08/10/22 23:59 11:59 23:59 Weight 73.9 kg 73.9 kg Other: Urine Appearance Clear Comment pt voided x2 Stool Size Moderate Stool Characteristics Soft Data Completed and Pending Completed studies during hospitalization [Text1]: CT head w/o contrast: No acute intracranial process. CXR: No acute abnormality.? Labs on day of discharge: Labs from last 24 hours 08/10/22 08/10/22 08/09/22 08:05 06:28 18:32 Sodium 141 Potassium 4.1 Chloride 107 Carbon Dioxide 27.7 Anion Gap 6.3 BUN 14 Creatinine 0.8 Est GFR (CKD-EPI 2020) 90.02 Glucose 96 Calcium 8.8 Magnesium 1.9 Troponin I < 50 Triglycerides 77 Total Cholesterol 128 LDL Cholesterol, Calc 56 HDL Cholesterol 57 TSH 3.25 Urine Color Urine Clarity Urine pH Ur Specific [place] Urine Protein Urine Ketones Urine Blood Urine Nitrite Urine Bilirubin Urine Urobilinogen Ur Leukocyte Esterase Urine Glucose B. divergens/MO-1 PCR Babesia duncani (PCR) Babesia microti DNA PCR Lyme Disease Antibody COVID-19 Source SARS-CoV-2 (PCR) E.chaffeensis DNA (PCR) E.ewingii/canis DNA PCR E.muris eauclairensis (PCR) A. phagocytophilum (PCR) Blood B. miyamotoi (PCR) Add-On Test Request DONE 08/09/22 08/09/22 08/09/22 17:46 17:46 15:20 Sodium Potassium Chloride Carbon Dioxide Anion Gap BUN Creatinine Est GFR (CKD-EPI 2020) Glucose Calcium Magnesium Troponin I Triglycerides Total Cholesterol LDL Cholesterol, Calc HDL Cholesterol TSH Urine Color Yellow Urine Clarity Clear Urine pH 7.0 Ur Specific [place] 1.010 Urine Protein Negative Urine Ketones Negative Urine Blood Negative Urine Nitrite Negative Urine Bilirubin Negative Urine Urobilinogen 0.2 Ur Leukocyte Esterase Negative Urine Glucose Negative B. divergens/MO-1 PCR Pending Babesia duncani (PCR) Pending Babesia microti DNA PCR Pending Lyme Disease Antibody Pending COVID-19 Source Nasal/Nares SARS-CoV-2 (PCR) Negative E.chaffeensis DNA (PCR) Pending E.ewingii/canis DNA PCR Pending E.muris eauclairensis (PCR) Pending A. phagocytophilum (PCR) Pending Blood B. miyamotoi (PCR) Pending Add-On Test Request PFSH All Active Problems (Updated 08/10/22 @ 15:58 by Latoya Cleveland MD) Sinus pause (Acute) COPD (chronic obstructive pulmonary disease) (Chronic) Discharge planning issues (Acute) DVT prophylaxis (Acute) Closed head injury (Acute) GERD (gastroesophageal reflux disease) (Chronic) Hyperlipidemia (Chronic) HTN (hypertension), benign (Chronic) CAD (coronary artery disease) (Chronic) Syncope (Acute) Medical History (Updated 08/10/22 @ 15:58 by Latoya Cleveland MD) Syncopal episodes Surgical History (Updated 08/09/22 @ 19:48 by Latoya Cleveland MD) H/O parathyroidectomy History of coronary artery stent placement Hx of CABG Family History (Updated 08/09/22 @ 19:41 by Latoya Cleveland MD) Father Heart disease Hypertension Mother Stroke Social History Smoking/Tobacco Use Status: Former Tobacco Use Smoking risk assessment performed?: Yes Alcohol Intake: current Alcohol Intake frequency: 0-2 drinks per day Alcohol type: wine Drug use: Never Substance use type: does not use Do you feel safe at home: Yes Do you feel safe in your relationship?: Yes Time Spent with Patient Time Spent with Patient: 45-69 minutes Time was spent: preparing to see the patient(eg.review tests), obtaining and/or reviewing separately otained hiistory, ordering medications,tests, procedures, referring, communicating with other health health care facility administrator, indepentently interpreting results, counseling the patient and care coordination
[2022-08-10] MEDS: Budesonide/Formoterol 80/4.5 6.9 GM 60 PUFF INH IH (19:11)
--- NOTE | 2022-08-10 19:15 | NUR.NOTE ---
Nursing Note: report to nurse at [facility] for transfer of care.
[2022-08-12 19:08] LABS: Anaplasma phagocytophilum Negative (Negative); B. miyamotoi PCR Negative (Negative); Babesia divergens/MO-1 Negative (Negative); Babesia duncani Negative (Negative); Babesia microti Negative (Negative); Ehrlichia chaffeensis Negative (Negative); Ehrlichia ewingii/canis Negative (Negative); Ehrlichia muris eauclairensis Negative (Negative)
[2022-08-13 09:51] LABS: Lyme Ab w Rflx to Lyme Confirm Negative (Negative)
== END 2022-08-10 21:36 | disposition short-term general hospital (02) | DRG 310 ==
LOC: ER 17:54 → MS 18:21
PROVIDERS: Admitting Provider Internal Medicine; Emergency Provider Emergency Medicine; Visit Provider Internal Medicine
DX: I49.5 Sick sinus syndrome; S09.8XXA Other specified injuries of head, initial encounter; I10 Essential (primary) hypertension; I25.10 Atherosclerotic heart disease of native coronary artery without angina pectoris; Z79.82 Long term (current) use of aspirin; W19.XXXA Unspecified fall, initial encounter; Z87.891 Personal history of nicotine dependence; E78.5 Hyperlipidemia, unspecified; Z95.5 Presence of coronary angioplasty implant and graft; Z95.1 Presence of aortocoronary bypass graft; J44.9 Chronic obstructive pulmonary disease, unspecified; K21.9 Gastro-esophageal reflux disease without esophagitis; E89.2 Postprocedural hypoparathyroidism
CPT/HCPCS: 36415; 80048; 80053; 80061; 87635; 87798; 90471; 93005; 99285; 70450; 71046; 81003; 83735; 84443; 84484; 85025; 85379; 86618; 93010; 99223; 99233; G0378